=== PATIENT | female | born 1960 | race Asian ===

== ENCOUNTER → 2016-06-20 | Outpatient (REF) ==
[~2016-06-20] MED LIST: ALDACTONE50 MG PO; CEFZIL500 MG PO; CIPRO500 MG PO; ENALAPRIL2.5 MG PO; FLOMAX0.4 MG PO; HYDRALAZINE50 MG PO; LASIX20 MG PO; OMNICEF 300MG300 MG PO; PROCARDIA10 MG PO; PYRIDIUM200 M1 PO; VASOTEC20 MG PO; VICODIN 5/5001 UDTAB PO; [UNRECOGNIZED DRUG - OTHER]
== END ==
LOC: WSOH 15:30
DX: Z01.83 Encounter for blood typing (principal)

== ENCOUNTER → 2017-05-08 | Outpatient (CLI) | payer BC | LOC: MC.RAD 09:00 | DX: Z12.31 Encounter for screening mammogram for malignant neoplasm of breast (principal); E55.9 Vitamin D deficiency, unspecified ==

== ENCOUNTER 2017-11-03 10:05 | Day surgery (SDC) | payer BC ==
[2017-11-03] VITALS (11 sets, daily range): BP systolic 126–169; BP diastolic 58–71; PULSE 45–82; TEMP 97.2–98.4
[~2017-11-03] VITALS: Ht 167.6 cm; Wt 124.1 kg
[~2017-11-03 10:05] MED LIST changes: +ALDACTONE 25MG25 M1 PO; -ALDACTONE50 MG PO
[2017-11-03] MEDS ORDERED: LIPITOR 10MG10 MG PO (10:46)
[2017-11-03] MEDS ORDERED: PLAVIX 75MG TAB75 MG PO (10:47)
[2017-11-03] MEDS ORDERED: B-121000 MCG PO (10:49)
[2017-11-03] MEDS ORDERED: PERCOCET 325 MG1 TA2 PO (12:00)
[2017-11-04 03:00] VITALS: BP 124/61; PULSE 69; TEMP 97.5
[2017-11-04 08:21] VITALS: BP 116/53; PULSE 50; TEMP 97.5
== END 2017-11-04 16:40 | disposition home or self-care (01) ==
LOC: SDCO 10:05 → OB 10:05 → SDCO 12:00
DX: N95.0 Postmenopausal bleeding (principal); D25.2 Subserosal leiomyoma of uterus; N73.6 Female pelvic peritoneal adhesions (postinfective); E78.00 Pure hypercholesterolemia, unspecified; I10 Essential (primary) hypertension; Z86.73 Personal history of transient ischemic attack (TIA), and cerebral infarction without residual deficits; Z79.01 Long term (current) use of anticoagulants; Z80.41 Family history of malignant neoplasm of ovary; N94.89 Other specified conditions associated with female genital organs and menstrual cycle
CPT/HCPCS: OP; A4314; J0690; J1100; J1885; J2175; J2270; J2405; J2704; J2710; J3010; J7120

== ENCOUNTER 2021-10-10 10:30 | Outpatient (RCR) | payer BC ==
[~2021-10-10 10:30] MED LIST changes: +B-121000 MCG PO; +LIPITOR 10MG10 MG PO; +PERCOCET 325 MG1 TA2 PO; +PLAVIX 75MG TAB75 MG PO
== END 2021-10-18 | disposition home or self-care (01) ==
LOC: MKS.ESL.PT
DX: R60.0 Localized edema (principal)

== ENCOUNTER 2021-10-24 12:57 | Outpatient (RCR) | payer BC | END 2021-11-18 | disposition home or self-care (01) | LOC: MKS.ESL.PT | DX: R60.0 Localized edema (principal) ==